=== PATIENT | male | born 1945 | race African-American/Black ===

== ENCOUNTER 2018-04-21 15:25 | Inpatient (IN) | payer MEDICARE, MEDICAID ==
[~2018-04-21] VITALS: Ht 172.7 cm; Wt 85.8 kg
[2018-04-21] MEDS ORDERED: SODIUM CHLORIDE 0.9% 1,000 ML IV ONE ×2 (17:51→18:46)
[2018-04-21 18:28] LABS: BASOPHILS % 0.6 % (0.0-2.0); HEMATOCRIT. 39.6 % (42.0-52.0); HEMOGLOBIN. 12.8 g/dL (14.0-18.0); LYMPHOCYTES % 9.1 % (20.0-50.0); MEAN CORPUSCULAR HEMOGLOBIN 26.9 pg (28.0-32.0); MEAN PLATELET VOLUME 8.6 fl (7.4-10.4); MONOCYTES % 8.8 % (2.0-8.0); NEUTROPHILS % 81.5 % (40.0-76.0); PLATELET 297 x1000/uL (130-400); RED BLOOD CELL COUNT 4.77 mill/uL (4.7-6.1); RED CELL DISTRIBUTION WIDTH 14.3 % (11.6-14.6)
[2018-04-21 18:29] LABS: CHLORIDE 104 mEq/L (98-107)
[2018-04-21 18:32] LABS: INR 1.3; PARTIAL THROMBOPLASTIN TIME 39.3 sec (23.4-31.0); PROTHROMBIN TIME 12.6 sec (9.1-11.1)
[2018-04-21] MEDS ORDERED: PANTOPRAZOLE SODIUM 40 MG/VIAL IV ONE (20:00)
[2018-04-21] MEDS ORDERED: PIPERACILLIN/TAZ 3.375G PREMIX 50 ML IV ONE (20:00)
[2018-04-21] MEDS ORDERED: SODIUM CHLORIDE 0.9% 1,000 ML IV SCH (21:08)
[2018-04-21] MEDS ORDERED: CLONIDINE 0.1MG TABLET PO PRN (21:15)
[2018-04-21] MEDS ORDERED: PIPERACILLIN/TAZ 3.375G PREMIX 50 ML IV SCH (21:15)
[2018-04-21] MEDS ORDERED: ACETAMINOPHEN 325MG TABLET PO PRN ×2 (21:15→21:30)
[2018-04-21] MEDS ORDERED: ONDANSETRON HCL 4MG/2ML INJ IV PRN ×2 (21:15→21:30)
[2018-04-21] MEDS ORDERED: SODIUM CHLORIDE 0.9% 1000ML BAG (SEPSIS BOLUS) IV ONE (21:15)
[2018-04-21] MEDS ORDERED: CEFTRIAXONE 1 G PREMIX 50 ML IV SCH (21:30)
[2018-04-21] MEDS ORDERED: NA PHOS,M-B/NA PHOS,DI-BA ENEMA 118ML PR PRN (21:30)
[2018-04-21] MEDS ORDERED: DOCUSATE SODIUM 100MG CAPSULE PO PRN (21:30)
[2018-04-21] MEDS ORDERED: GUAIFENESIN 200MG/10ML SUGAR FREE UDC PO PRN (21:30)
[2018-04-21] MEDS ORDERED: ACETAMINOPHEN 650MG/20.3ML UDC GT PRN (21:30)
[2018-04-21] MEDS ORDERED: METRONIDAZOLE 500 MG PREMIX 100 ML IV SCH (21:30)
[2018-04-21] MEDS ORDERED: ACETAMINOPHEN 650MG SUPP PR PRN (21:30)
[2018-04-21] MEDS ORDERED: IPRATROPIUM/ALBUTEROL 0.5-3(2.5)MG/3ML NEB INH PRN (21:30)
[2018-04-21] MEDS ORDERED: MAGNESIUM/ALUMINUM HYDROXIDE/SIMETHICONE 30ML UDC PO PRN (21:30)
[2018-04-21] MEDS ORDERED: DIPHENHYDRAMINE 50MG/ML VIAL IV PRN (21:30)
[2018-04-22 02:40] VITALS: BP 109/72
[2018-04-22] MEDS: DEXT 5%/0.45% NACL 1000ML 1,000 ML IV SCH ×2 (02:49→12:09)
[2018-04-22] MEDS: METRONIDAZOLE 500 MG PREMIX 100 ML IV SCH ×3 (03:12→22:47)
[2018-04-22 04:00] VITALS: BP 124/86
[2018-04-22 04:31] VITALS: BP 131/79
[2018-04-22] MEDS: CEFTRIAXONE 1,000 MG in DEXTROSE 5% WATER 50 ML IV SCH (06:01)
[2018-04-22 06:45] LABS: BASOPHILS % 0.6 % (0.0-2.0); EOSINOPHILS % 0.1 % (0.0-5.0); HEMATOCRIT. 36.4 % (42.0-52.0); HEMOGLOBIN. 11.8 g/dL (14.0-18.0); LYMPHOCYTES % 7.4 % (20.0-50.0); MEAN CORPUSCULAR HEMOGLOBIN 27.3 pg (28.0-32.0); MEAN CORPUSCULAR VOLUME 84.1 fL (80.0-94.0); MEAN PLATELET VOLUME 8.7 fl (7.4-10.4); MONOCYTES % 7.9 % (2.0-8.0); PLATELET 241 x1000/uL (130-400); RED BLOOD CELL COUNT 4.32 mill/uL (4.7-6.1); RED CELL DISTRIBUTION WIDTH 14.5 % (11.6-14.6)
[2018-04-22 07:29] LABS: CHLORIDE 110 mEq/L (98-107)
[2018-04-22 08:00] VITALS: BP 143/75
[2018-04-22 08:01] LABS: LDL CHOLESTEROL 46 mg/dL (5-100)
[2018-04-22 08:02] LABS: HDL CHOLESTEROL 18 mg/dL (40-59)
[2018-04-22] MEDS: PANTOPRAZOLE SODIUM 40 MG/VIAL IV SCH (08:34)
[2018-04-22] MEDS ORDERED: PANTOPRAZOLE SODIUM 40 MG/VIAL IV SCH (09:00)
[2018-04-22] MEDS: SODIUM CHLORIDE 0.9% INJ 3ML FLUSH IVF SCH ×2 (14:50→22:47)
[2018-04-22 16:00] VITALS: BP 119/72
[2018-04-22 20:00] VITALS: BP 148/79
[2018-04-23] VITALS (7 sets, daily range): BP systolic 118–157; BP diastolic 73–97
[2018-04-23] MEDS: DEXT 5%/0.45% NACL 1000ML 1,000 ML IV SCH ×3 (01:41→17:39)
[2018-04-23] MEDS: CEFTRIAXONE 1,000 MG in DEXTROSE 5% WATER 50 ML IV SCH (05:07)
[2018-04-23] MEDS: METRONIDAZOLE 500 MG PREMIX 100 ML IV SCH ×3 (06:44→21:43)
[2018-04-23] MEDS: PANTOPRAZOLE SODIUM 40 MG/VIAL IV SCH (08:34)
[2018-04-23] MEDS: CLONIDINE 0.1MG TABLET PO PRN (08:36)
[2018-04-23] MEDS ORDERED: METR500T MT (11:57)
[2018-04-23] MEDS ORDERED: LEVO500T2 MT (11:57)
[2018-04-23] MEDS: SODIUM CHLORIDE 0.9% INJ 3ML FLUSH IVF SCH ×2 (13:00→21:43)
[2018-04-23 21:04] LABS: BASOPHILS % 1.1 % (0.0-2.0); EOSINOPHILS % 1.2 % (0.0-5.0); HEMATOCRIT. 35.3 % (42.0-52.0); HEMOGLOBIN. 11.4 g/dL (14.0-18.0); LYMPHOCYTES % 13.9 % (20.0-50.0); MEAN CORPUSCULAR VOLUME 83.6 fL (80.0-94.0); MEAN PLATELET VOLUME 8.6 fl (7.4-10.4); MONOCYTES % 8.8 % (2.0-8.0); PLATELET 263 x1000/uL (130-400); RED BLOOD CELL COUNT 4.22 mill/uL (4.7-6.1); RED CELL DISTRIBUTION WIDTH 14.7 % (11.6-14.6)
[2018-04-23 21:07] LABS: CHLORIDE 109 mEq/L (98-107)
[2018-04-24] VITALS: BP 149/77
[2018-04-24] MEDS: DEXT 5%/0.45% NACL 1000ML 1,000 ML IV SCH (03:55)
[2018-04-24 04:00] VITALS: BP 150/98
[2018-04-24] MEDS: CEFTRIAXONE 1,000 MG in DEXTROSE 5% WATER 50 ML IV SCH (04:22)
[2018-04-24] MEDS: SODIUM CHLORIDE 0.9% INJ 3ML FLUSH IVF SCH (05:11)
[2018-04-24] MEDS: METRONIDAZOLE 500 MG PREMIX 100 ML IV SCH (05:33)
[2018-04-24] MEDS ORDERED: POTASSIUM CHLORIDE 20MEQ TABLET SR PO NR (07:18)
[2018-04-24 08:00] VITALS: BP 160/103
[2018-04-24] MEDS: PANTOPRAZOLE SODIUM 40 MG/VIAL IV SCH (08:31)
[2018-04-24] MEDS: CLONIDINE 0.1MG TABLET PO PRN (08:32)
[2018-04-24 11:48] VITALS: BP 134/67
== END 2018-04-24 13:40 | DRG 871 ==
LOC: ER 15:25 → EDBD 15:25 → EDBEDREQ 18:49 → 6EST 20:15 → EDBEDREQ 20:24 → EDBEDREQTM 20:24 → ENRESERV 23:12
PROVIDERS: ADMIT Family Medicine; ATTEND Family Medicine
DX: A41.9 Sepsis, unspecified organism (principal); K57.31 Diverticulosis of large intestine without perforation or abscess with bleeding; K55.9 Vascular disorder of intestine, unspecified; A09 Infectious gastroenteritis and colitis, unspecified; D64.9 Anemia, unspecified; F03.90 Unspecified dementia, unspecified severity, without behavioral disturbance, psychotic disturbance, mood disturbance, and anxiety; F20.9 Schizophrenia, unspecified; E86.0 Dehydration; E66.9 Obesity, unspecified; Z68.28 Body mass index [BMI] 28.0-28.9, adult
CPT/HCPCS: 36415; 71045; 74176; 80061; 83605; 84484; 85018; 86850; 86900; 93005; 93970; 96374; 96375; 99285; C9113; J0696; J2543; J3490; J7030; J7060

== ENCOUNTER 2019-09-28 18:58 | Inpatient (IN) | payer MEDICARE, MEDICAID ==
[~2019-09-28] VITALS: Ht 177.8 cm; Wt 90.7 kg
[~2019-09-28 18:58] MED LIST: LEVO500T2 MT; METR500T MT
[2019-09-28] MEDS ORDERED: ONDANSETRON HCL 4MG/2ML INJ IV STA (21:35)
[2019-09-28] MEDS ORDERED: MORPHINE SULFATE 4 MG/ML CPJ (NOT FOR IM USE) IV STA (21:35)
[2019-09-29 01:05] LABS: CHLORIDE 109 mEq/L (98-107)
[2019-09-29 01:06] LABS: BASOPHILS % 3.2 % (0.0-2.0); EOSINOPHILS % 1.4 % (0.0-5.0); HEMATOCRIT. 43.3 % (42.0-52.0); HEMOGLOBIN. 14.3 g/dL (14.0-18.0); LYMPHOCYTES % 31.4 % (20.0-50.0); MEAN CORPUSCULAR HEMOGLOBIN 26.9 pg (28.0-32.0); MEAN CORPUSCULAR VOLUME 81.5 fL (80.0-94.0); MEAN PLATELET VOLUME 8.6 fl (7.4-10.4); MONOCYTES % 4.9 % (2.0-8.0); NEUTROPHILS % 59.1 % (40.0-76.0); PLATELET 210 x1000/uL (130-400); RED BLOOD CELL COUNT 5.31 mill/uL (4.7-6.1); RED CELL DISTRIBUTION WIDTH 15.3 % (11.6-14.6)
[2019-09-29 01:09] LABS: ETHANOL BLOOD < 10 mg/dL
[2019-09-29 01:42] LABS: CLARITY URINE CLEAR (CLEAR); COLOR URINE YELLOW (YELLOW); KETONES URINE NEGATIVE (NEGATIVE); LEUKOCYTE ESTERASE URINE TRACE (NEGATIVE); NITRITE URINE NEGATIVE (NEGATIVE); OCCULT BLOOD URINE NEGATIVE (NEGATIVE); PROTEIN URINE TRACE (NEGATIVE); UROBILINOGEN URINE 0.2 E.U./dL (0.2-1.0)
[2019-09-29 02:17] LABS: *AMPHETAMINES SCREEN URINE NEGATIVE (NEGATIVE); *BARBITURATES SCREEN URINE NEGATIVE (NEGATIVE)
[2019-09-29 02:18] LABS: *BENZODIAZEPINES SCREEN URINE NEGATIVE (NEGATIVE); *COCAINE SCREEN URINE NEGATIVE (NEGATIVE); CANNABINOID URINE SCREEN NEGATIVE (NEGATIVE); METHADONE URINE SCREEN NEGATIVE (NEGATIVE); OPIATES URINE SCREEN NEGATIVE (NEGATIVE); PHENCYCLIDINE URINE SCREEN NEGATIVE (NEGATIVE)
[2019-09-29 03:53] LABS: PROTHROMBIN TIME 10.8 sec (9.6-11.0)
[2019-09-29] MEDS ORDERED: IOHEXOL-300 100 ML BOTTLE ONE (03:58)
[2019-09-29] MEDS ORDERED: CLONIDINE 0.1MG TABLET PO ONE (09:00)
[2019-09-29 17:00] VITALS: BP 132/84
[2019-09-29] MEDS ORDERED: GABA-290 PO (18:11)
[2019-09-29] MEDS ORDERED: AMLO5TAB88 PO (18:11)
[2019-09-29] MEDS ORDERED: LATA2.5D2 EACHEYE (18:11)
[2019-09-29] MEDS ORDERED: CLON1PAT11 TP (18:11)
[2019-09-29] MEDS ORDERED: SIME125C MT (18:11)
[2019-09-29] MEDS ORDERED: MELA3TAB71 PO (18:11)
[2019-09-29] MEDS ORDERED: DOCU-138 PO (18:11)
[2019-09-29] MEDS ORDERED: LACT10SO7 PO (18:11)
[2019-09-29] MEDS ORDERED: MOM MT (18:11)
[2019-09-29] MEDS ORDERED: ATOR40TA70 PO (18:11)
[2019-09-29] MEDS ORDERED: XALAO EACHEYE (18:11)
[2019-09-29] MEDS ORDERED: LEVO25TA7 PO (18:11)
[2019-09-29] MEDS ORDERED: CHOL200077 MT (18:11)
[2019-09-29] MEDS ORDERED: CLONIDINE 0.1MG TABLET PO PRN (18:15)
[2019-09-29 20:00] VITALS: BP 102/68
[2019-09-29 20:17] LABS: BASOPHILS % 1.3 % (0.0-2.0); EOSINOPHILS % 1.2 % (0.0-5.0); HEMATOCRIT. 41.4 % (42.0-52.0); HEMOGLOBIN. 13.8 g/dL (14.0-18.0); LYMPHOCYTES % 32.3 % (20.0-50.0); MEAN CORPUSCULAR HEMOGLOBIN 27.1 pg (28.0-32.0); MEAN CORPUSCULAR VOLUME 81.6 fL (80.0-94.0); MEAN PLATELET VOLUME 8.8 fl (7.4-10.4); MONOCYTES % 7.5 % (2.0-8.0); NEUTROPHILS % 57.7 % (40.0-76.0); PLATELET 206 x1000/uL (130-400); RED BLOOD CELL COUNT 5.08 mill/uL (4.7-6.1); RED CELL DISTRIBUTION WIDTH 15.3 % (11.6-14.6)
[2019-09-29 20:24] LABS: CHLORIDE 110 mEq/L (98-107)
[2019-09-29] MEDS ORDERED: LATANOPROST 0.005% OPHTH DROPS 2.5ML EACHEYE SCH (21:00)
[2019-09-29] MEDS ORDERED: BISACODYL 5MG TABLET PO NR (21:00)
[2019-09-29] MEDS ORDERED: CEFTRIAXONE 1 G PREMIX 50 ML IV SCH (21:00)
[2019-09-29] MEDS: CEFTRIAXONE 1,000 MG in DEXTROSE 5% WATER 50 ML IV SCH (21:55)
[2019-09-29] MEDS: SODIUM CHLORIDE 0.45% 1,000 ML IV SCH (21:56)
[2019-09-29] MEDS: ATORVASTATIN CALCIUM 40MG TABLET PO SCH ×2 (21:58→22:03)
[2019-09-29] MEDS ORDERED: MAGNESIUM CITRATE 300ML SOLUTION PO NR (22:00)
[2019-09-29] MEDS: LATANOPROST 0.005% OPHTH DROPS 2.5ML EACHEYE SCH (22:00)
[2019-09-29] MEDS ORDERED: CLONIDINE HCL 0.2MG/24HR PATCH TD SCH (22:00)
[2019-09-30] VITALS: BP 90/49
[2019-09-30 04:00] VITALS: BP 115/65
[2019-09-30] MEDS: DOCUSATE SODIUM 100MG CAPSULE PO SCH (09:31)
[2019-09-30] MEDS: LEVOTHYROXINE SODIUM 25MCG TABLET PO SCH (09:31)
[2019-09-30] MEDS: AMLODIPINE 5MG TABLET PO SCH (09:32)
[2019-09-30] MEDS: MAGNESIUM HYDROXIDE 400MG/5ML 30ML UDC PO SCH ×2 (09:32→17:00)
[2019-09-30] MEDS: SODIUM CHLORIDE 0.45% 1,000 ML IV SCH (10:35)
[2019-09-30 12:00] VITALS: BP 114/84
[2019-09-30 16:00] VITALS: BP 113/73
[2019-09-30 20:00] VITALS: BP 106/62
[2019-09-30] MEDS: CEFTRIAXONE 1,000 MG in DEXTROSE 5% WATER 50 ML IV SCH (20:52)
[2019-09-30] MEDS: LATANOPROST 0.005% OPHTH DROPS 2.5ML EACHEYE SCH (20:52)
[2019-09-30] MEDS ORDERED: LACTULOSE 20G/30ML UDC PO NR (21:15)
[2019-09-30] MEDS ORDERED: CLONIDINE HCL 0.2MG/24HR PATCH TD SCH (22:00)
[2019-10-01] VITALS: BP 101/60
[2019-10-01 04:00] VITALS: BP 134/60
[2019-10-01 08:00] VITALS: BP 143/86
[2019-10-01] MEDS: MAGNESIUM HYDROXIDE 400MG/5ML 30ML UDC PO SCH ×2 (09:19→16:25)
[2019-10-01] MEDS: AMLODIPINE 5MG TABLET PO SCH (09:19)
[2019-10-01] MEDS: DOCUSATE SODIUM 100MG CAPSULE PO SCH (09:19)
[2019-10-01] MEDS: LEVOTHYROXINE SODIUM 25MCG TABLET PO SCH (09:19)
[2019-10-01 12:00] VITALS: BP 128/79
[2019-10-01] MEDS ORDERED: LACTULOSE 20G/30ML UDC PO NR ×2 (13:00→21:30)
[2019-10-01] MEDS ORDERED: BISACODYL 5MG TABLET PO NR ×2 (13:00→21:30)
[2019-10-01] MEDS: SODIUM CHLORIDE 0.45% 1,000 ML IV SCH (13:22)
[2019-10-01 15:34] LABS: EOSINOPHILS % 4.2 % (0.0-5.0); HEMATOCRIT. 42.1 % (42.0-52.0); HEMOGLOBIN. 13.9 g/dL (14.0-18.0); LYMPHOCYTES % 43.1 % (20.0-50.0); MEAN CORPUSCULAR VOLUME 81.9 fL (80.0-94.0); MONOCYTES % 8.8 % (2.0-8.0); NEUTROPHILS % 42.9 % (40.0-76.0); PLATELET 216 x1000/uL (130-400); RED BLOOD CELL COUNT 5.14 mill/uL (4.7-6.1); RED CELL DISTRIBUTION WIDTH 15.2 % (11.6-14.6)
[2019-10-01 15:42] LABS: CHLORIDE 110 mEq/L (98-107)
[2019-10-01 16:00] VITALS: BP 137/84
[2019-10-01] MEDS ORDERED: CLONIDINE HCL 0.2MG/24HR PATCH TD SCH (18:00)
[2019-10-01 20:00] VITALS: BP 128/82
[2019-10-01] MEDS: ATORVASTATIN CALCIUM 40MG TABLET PO SCH (20:14)
[2019-10-01] MEDS: CEFTRIAXONE 1,000 MG in DEXTROSE 5% WATER 50 ML IV SCH (20:14)
[2019-10-01] MEDS: LATANOPROST 0.005% OPHTH DROPS 2.5ML EACHEYE SCH (20:14)
[2019-10-02] VITALS: BP 131/89
[2019-10-02] MEDS: SODIUM CHLORIDE 0.45% 1,000 ML IV SCH (02:30)
[2019-10-02 04:00] VITALS: BP 130/83
[2019-10-02 08:00] VITALS: BP 137/94
[2019-10-02] MEDS: LEVOTHYROXINE SODIUM 25MCG TABLET PO SCH (10:23)
[2019-10-02] MEDS: AMLODIPINE 5MG TABLET PO SCH (10:23)
[2019-10-02] MEDS: DOCUSATE SODIUM 100MG CAPSULE PO SCH (10:24)
[2019-10-02] MEDS: MAGNESIUM HYDROXIDE 400MG/5ML 30ML UDC PO SCH (10:24)
[2019-10-02 12:00] VITALS: BP 124/88
[2019-10-02 14:25] VITALS: BP 124/88
== END 2019-10-02 15:33 | DRG 389 ==
LOC: ER 19:13 → CANBEDREQ 09-29 02:52 → 6EST 09-29 13:17 → ENRESERV 09-29 15:25
PROVIDERS: ADMIT Family Medicine; ATTEND Family Medicine
DX: K56.41 Fecal impaction (principal); F03.91 Unspecified dementia, unspecified severity, with behavioral disturbance; I77.819 Aortic ectasia, unspecified site; N32.89 Other specified disorders of bladder; E03.9 Hypothyroidism, unspecified; E55.9 Vitamin D deficiency, unspecified; E78.5 Hyperlipidemia, unspecified; F20.9 Schizophrenia, unspecified; F41.9 Anxiety disorder, unspecified; H40.9 Unspecified glaucoma; I25.10 Atherosclerotic heart disease of native coronary artery without angina pectoris; N30.90 Cystitis, unspecified without hematuria; E11.9 Type 2 diabetes mellitus without complications; I10 Essential (primary) hypertension; G47.00 Insomnia, unspecified; K21.9 Gastro-esophageal reflux disease without esophagitis; R26.9 Unspecified abnormalities of gait and mobility
CPT/HCPCS: 36415; 71045; 74177; 80048; 80053; 80305; 80320; 81003; 83605; 83880; 84484; 85025; 86850; 86900; 93005; 97110; 97116; 97162; 99285; J0696; J7060; Q9967; G0480